=== PATIENT | male | born 1940 | race Caucasian/White ===

== ENCOUNTER 2019-03-10 10:05 | Inpatient (IN) | payer MEDICARE ==
[~2019-03-10] VITALS: Ht 167.6 cm; Wt 111.0 kg
[2019-04-22] VITALS (12 sets, daily range): BP systolic 111–156; BP diastolic 56–93; PULSE 50–84; TEMP 98–98.5
[2019-04-22] MEDS ORDERED: RYTHMOL300 MG PO (06:25)
[2019-04-22] MEDS ORDERED: CARTIA XT120 MG PO (06:25)
[2019-04-22] MEDS ORDERED: ASPIRIN E.C. 8181 MG PO (06:26)
[2019-04-22] MEDS ORDERED: OMEGA-3 1000 MG1 CAP PO (06:26)
[2019-04-22] MEDS ORDERED: ALEVE 220MG220 MG PO (06:27)
--- NOTE | 2019-04-22 07:30 | NUR ---
arrived per at 0540, assisted into gown and into bed, prepped for surgery without incident, explantion given for going to and returning from surgery to patient and his daughter, verbalizes understanding
--- NOTE | 2019-04-22 12:00 | NUR ---
returned to room per bed from PACU, awake and alert but very sleepy, IV infusing and placed on pump at 125ml/hr, O2 on at 3L/NC and O2 sat 98%, bulky dressing to left knee CD&I, SCDs on bilaterally, CARRILLO hose on right leg, finn cath pateint draining clear yellow urine, has sensation at the top of his thighs and unable to move lower extremities, full assessment completed, see interventions for further info
--- NOTE | 2019-04-22 12:30 | NUR ---
sleeping between checks, arouses easily
--- NOTE | 2019-04-22 13:15 | NUR ---
is awake now and visiting with daughter with TV on, has minimal sensation to mid thigh area and remains unable to move lower extremities
--- NOTE | 2019-04-22 13:45 | NUR ---
has some sensation to knee on the right and has gross motor movement, unable to mvoe left leg
--- NOTE | 2019-04-22 14:00 | NUR ---
taking sips of water and tolerates well, visiting with daughter
--- NOTE | 2019-04-22 14:45 | NUR ---
has sensation and movement to bilateral feet, is ready for something to eat and assisted him with ordering food,
--- NOTE | 2019-04-22 14:46 | NUR ---
ARCHANA met with the patient and patient's daughter, Sylvia Bahena (ph#[phone]), to discuss discharge plan. The patient lives in [place] with his daughter, Sylvia Ward, and son-in-law. He reports independence with ADLs and does not have any DME. The patient's PCP is Dr. Emerita Iraheta and he receives his medications at [facility]. He reports no difficulties obtaining his meds. The patient does not have advanced directives, but he was interested in obtaining a form for DPOA-HC. ARCHANA provided. The patient plans to return home with his daughter and receive outpatient PT at [facility] upon discharge. SW to continue to monitor for PT's possible recs for equipment needs.
--- NOTE | 2019-04-22 15:45 | NUR ---
had regular meal and tolerated well, denies needs
--- NOTE | 2019-04-22 17:09 | NUR ---
c/o pain 01/27 and medicated with roxicodone 5mg po
--- NOTE | 2019-04-22 18:00 | NUR ---
appears to be sleeping, in bed with eyes closed, resp quiet and easy
--- NOTE | 2019-04-22 19:03 | NUR ---
bedside shift report given to Boris Jolly
--- NOTE | 2019-04-22 20:30 | NUR ---
Pt. laying in bed at this time. Pt. is A&OX3, assessment complete. IV to rt. forearm patent, IV fluids infusing per orders. Pt. reports pain at a 6 on pain scale. Meds given. Dressing to lt. knee cdi. Pt. denies further needs at this time.
[2019-04-23 05:13] VITALS: BP 141/76; PULSE 79; TEMP 98.7
--- NOTE | 2019-04-23 06:35 | NUR ---
Patient had uneventful night. Resting in bed. Reported moderate pain, given PRN norco. Denied any further needs at this time. Call light within reach.
[2019-04-23 07:04] LABS: HEMATOCRIT 44.5 % (42.0-52.0); HEMOGLOBIN 14.3 g/dl (13.5-18.0)
--- NOTE | 2019-04-23 07:05 | NUR ---
Report given to BORIS Oconnor
[2019-04-23 07:55] VITALS: BP 138/81; PULSE 81; TEMP 98.6
--- NOTE | 2019-04-23 08:11 | NUR ---
PATIENT ASSESSMENT COMPLETED. PATIENT VSS. PATIENT IS ALERT AND ORIENTED. PATIENT HAS DX OF LEFT TOTAL KNEE. PATIENT HAS IV IN RIGHT FOREARM. PATIENT WAS INT THIS MORNING BY NURSING STAFF. PATIENT DRESSING IS DRY AND INTACT, PATIENT DRESSING WAS CHANGED TO AQUACELL WITH CANDIDA WRAP. PATIENT DOES HAVE VYAS IN PLACE WITH CLEAR/YELLOW URINE. THIS MORNING BY NURSING STAFF. PATIENT RECEIVED PAIN MEDS AROUND 0600. PATIENT RATED PAIN AT ABOUT A 6. PATIENT LUNG SOUNDS NORMAL. HEART SOUNDS TACHY WITH AN ABNORMAL RHYTHM. PATIENT DENIES CHEST PAIN OR SOB. PATIENT IN PLEASANT MOOD. CALL LIGHT WITHIN REACH, WILL CONTINUE TO MONITOR.
[2019-04-23 11:02] VITALS: BP 122/68; PULSE 83; TEMP 98.1
--- NOTE | 2019-04-23 12:10 | NUR ---
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 No needs right now.
[2019-04-23 16:02] VITALS: BP 150/76; PULSE 88; TEMP 98.4
--- NOTE | 2019-04-23 16:45 | NUR ---
SW met with patient to discuss DME choice form for a walker. After speaking with patient's daughter, Sylvia Ward, patient and daughter reviewed options and chose [facility]. SW faxed referral and will fax order when it is signed tomorrow.
--- NOTE | 2019-04-23 20:00 | NUR ---
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 Assessment complete. Denies pain. Alert and oriented to self-very confused-reoriented and remembers where he is and why. Has removed clothing several times-stating he needed to go home/ride horses. Aquacell to left knee C/D/I. SCDs and TEDs on bilat. Cryocuff with fresh ice. Voiding without difficulty and tolerating PO diet. INT to right forearm flushes without difficulty. No redness/swelling noted. Call light in reach. Bed in low position/wheels locked. Bed alarm on due to recent confusion. Will monitor.
[2019-04-23 21:02] VITALS: BP 147/88; PULSE 115; TEMP 98.5
--- NOTE | 2019-04-23 22:00 | NUR ---
Has been very confused-trying to get out of bed to "ride horses" or to "go home to eat with family." Pulled out INT to right forearm. Has had legs out of bed trying to climb over bed rail. Moved to room 345 closer to nurses station as bed alarm will be set off and already hanging off side of bed. Re-oriented several times. Denies pain. Will monitor.
[2019-04-23 23:53] VITALS: BP 123/87; PULSE 91; TEMP 98.9
--- NOTE | 2019-04-24 01:00 | NUR ---
Dressing to left knee with large amount of bright red blood. Has been very confused-wont keep knee in proper alignment-trying to get out of bed to ride horses. Removed cryocuff as well as SCDs. Removed rod and ABD re-enforement placed on day shift-aquacell totally saturated with blood leaking over sides. Notified provider manager zone about dressing and confusion- new orders to replace with bulky white dressing/rod. Chan intact-edges well approximated. Active bleeding to distal part of incision only-between two chan. Placed 4x4s over incision, ABDsX2, fluffy white cast dressingx2 with rod bandage x2. Fresh ice/water added to cryocuff and applied. Supported on pillow below bed in knee. Instructed on proper alignment as well as the cryocuff for swelling. Verbalizes understanding. Will monitor and re-orient as needed.
[2019-04-24 03:44] VITALS: BP 142/83; PULSE 97; TEMP 98.3
--- NOTE | 2019-04-24 04:00 | NUR ---
Has not rested much this shift. Has remained [id number] with plan of care discussed. No drainage noted to new dressing. Cryocuff on with fresh ice/water. Denies pain and nausea. Will continue to monitor.
[2019-04-24 07:15] LABS: HEMATOCRIT 41.3 % (42.0-52.0); HEMOGLOBIN 13.5 g/dl (13.5-18.0)
[2019-04-24 07:53] VITALS: BP 127/79; PULSE 92; TEMP 98.2
[2019-04-24 08:40] LABS: BASO % 0.4 % (0.0-2.0); EOS # 0.1 (0.0-0.7); EOS % 0.8 % (0-4.0); GRAN % 73.2 % (42.2-75.2); HEMATOCRIT 41.6 % (42.0-52.0); HEMOGLOBIN 13.6 g/dl (13.5-18.0); LYMPH # 1.1 (1.2-3.4); LYMPH % 11.5 % (20.0-51.0); MEAN CELL VOLUME 96 fl (80.0-100.0); MEAN CORPUSCULAR HEMOGLOBIN 31 pg (27.0-31.0); MEAN CORPUSCULAR HGB CONC 33 g/dl (33.0-37.0); MEAN PLATELET VOLUME 11.2 fl (7.4-10.4); MONO # 1.3 (0.1-0.6); MONO % 13.6 % (1.7-9.3); PLATELET COUNT 143 K/mm3 (130-400); RED BLOOD COUNT 4.34 M/mm3 (4.20-5.60); REDCELL DISTRIBUTION WIDTH-CV 12.5 % (11.5-14.5)
[2019-04-24 08:42] LABS: POTASSIUM 4.3 mmol/L (3.4-5.0)
[2019-04-24 08:52] LABS: ALBUMIN 3.4 gm/dL (3.5-5.0); BILIRUBIN,TOTAL 1.1 mg/dL (0.0-1.0); CALCIUM 8.9 mg/dL (8.4-10.2); CREATININE, serum 0.93 (0.66-1.25); TOTAL PROTEIN 6.2 gm/dL (6.4-8.2)
--- NOTE | 2019-04-24 08:58 | NUR ---
PATIENT ASSESSMENT COMPELTED. PATIENT IS ALERT AND SOMEWHAT ORIENTED. PATIENT HAS SOME MILD CONFUSION INT. PATIENT VSS AND HEART AND LUNG SOUNDS NORMAL. PATIENT HAS DX OF LTK WITH AQUACELL DRESSING. 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 PATIENT ATE 100% OF BREAKFAST. PATIENT HGB NORMAL AND SODIUM OF 136. PATIENT GIVEN MORNING MEDICATION. PATIENT CALL LIGHT WITHIN REACH, WILL CONTINUE TO MONITOR.
[2019-04-24 11:32] VITALS: BP 119/66; PULSE 78; TEMP 97.4
--- NOTE | 2019-04-24 11:46 | NUR ---
ARCHANA attended clinical rounds. The patient had some confusion last night and was moved to room 345. PT/OT have since worked with the patient and are now recommending home with family and outpatient therapy vs post acute rehab. ARCHANA then followed up with the patient. The patient reports that he does not want to go to any SNF or swing bed. He states that he still wants to return home with his daughter and son-in-law and that he will have family assistance. ARCHANA then contacted the patient's daughter, Sylvia Ward, to update. Sylvia Ward reports that she knows the patient will not want to go anywhere. She states that she would prefer home health to start off with and then have the patient transition to outpatient PT. ARCHANA reviewed Medicare.gov's list of home health agencies that serve [place]. There are three agencies on the list. The patient's daughter chose [facility]. ARCHANA contacted [facility] and they report that they do not do home health anymore. ARCHANA contacted [facility] in [place] to inquire if they serve [place] for PT/OT. [facility] reports that they do not. ARCHANA contacted Shannon at [facility]. Shannon reports that she is unsure if their therapists go out to [place], but that she will find out and update ARCHANA. ARCHANA contacted and updated the patient's daughter. The patient's daughter plans to come up to the hospital and visit with the patient about the options after she gets off work. ARCHANA contacted and faxed the patient's walker script to Lakesha at [facility]. Lakesha reports that they will either deliver the walker later today or tomorrow. ARCHANA to continue to follow.
[2019-04-24 15:32] VITALS: BP 131/81; PULSE 97; TEMP 98.4
--- NOTE | 2019-04-24 15:38 | NUR ---
Shannon, at [facility], reports that they would be able to provide PT/halfway for the patient. ARCHANA attempted to contact the patient's daughter to inform and left a voicemail. The patient's daughter contacted ARCHANA back and informed ARCHANA that she reached out to Eliza Champion (ph#[phone]) at [facility] in [place] and Eliza reports that they can provide therapy in the home for the patient for a few weeks. ARCHANA contacted Eliza Champion and she confirms that they can accept the patient and requested that ARCHANA fax the patient's orders to [phone] and [facility]. ARCHANA faxed a referral to Eliza at [facility] and will continue to follow.
[2019-04-24 17:49] LABS: COLLECTION METHOD CLEAN CATCH
[2019-04-24 18:14] LABS: PH 6 (5-8); SQUAMOUS EPITHELIAL 0-2 /hpf; URINE APPEARANCE Clear; URINE BACTERIA None Seen /hpf; URINE BILIRUBIN Negative (NEGATIVE); URINE BLOOD Negative (NEGATIVE); URINE COLOR Yellow; URINE GLUCOSE Negative (NEGATIVE); URINE KETONE Negative (NEGATIVE); URINE LEUKOCYTE ESTERASE Negative (NEGATIVE); URINE NITRATE Negative (NEGATIVE); URINE PROTEIN(semi-quant) Negative (NEGATIVE); URINE RBC 0-2 /hpf
--- NOTE | 2019-04-24 19:30 | NUR ---
Report received. 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 Assessment complete. VS stable. A&O x3- denies pain/nausea/shortness of breath. Sitting up in recliner watching football game. Daughter is at bedside visiting with questions from the night before and whether or not her father will be able to go home tomorrow as planned. Seems slightly agitated/anxious. Reassured her that we would be working with him this shift to increase activity. 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 Patient also contributed to conversation stating several times he doesnt remember anything from last NOC. Daughter verbalized understanding of what the situation was-no longer agitated but still concerned about whether or not he will be able to go home. Discussed results of tests ran post incident explaining that this happens with some patients after anesthesia. Compression dressing remains C/D/I-bulky white with rod bandage. Cryocuff on-fresh ice/water replaced. Edema to LLE +2. SCDs bilat. Discussed getting up to ambulate this shift as well as getting up to bathroom with assistance. Verbalizes understanding. Daughter states she will be going home this evening but will be back tomorrow afternoon unless she is needed earlier in which day shift may call. No other questions or concerns at this time. Instructed to call for questions or concerns. Verbalizes understanding. Call light in reach/chair alarm on. Will monitor.
[2019-04-24 19:35] VITALS: BP 127/72; PULSE 92; PULSE 98; TEMP 99.8
--- NOTE | 2019-04-24 20:15 | NUR ---
Attempt made to ambulate/use bathroom. Assistx2 with gait belt/walker. Very unsteady gait-Did ambulate to bathroom-voided without difficulty. Attempted to ambulate in hallway-made it to door and back to bed. Positioned in bed with teaching done on proper alignment. Cryocuff reapplied. Denies need for pain intervention stating the ice helps enough. Instructed to call for increased pain or assistance to bathroom. Verbalizes understanding. Remains A&Ox3. Call light in reach/bed in low position/wheels locked/alarm on. Will monitor.
[2019-04-24 23:59] VITALS: BP 101/53; PULSE 93; TEMP 98.4
--- NOTE | 2019-04-25 | NUR ---
Has slept the last few hours. Woke up slightly confused-removing cryocuff and attempting to remove dressing. Re-oriented immediately after mentioning his "surgery." States "I slept so hard I didnt know where I was and just wanted to go to the bathroom." Assist x2 up out of bed with gait belt/walker to bathroom. Not as unsteady-following direction/guidance. Voided without difficulty. Ambulated back to bed-cryocuff re-applied with fresh ice/water. Denies pain. Edema to LLE +3. Teaching done about importance of cryocuff and proper alignment. Verbalizes understanding. Call light in reach/bed in low position/wheels locked/alarm on. Will continue to monitor.
[2019-04-25 04:00] VITALS: BP 121/44; PULSE 89; TEMP 98.3
--- NOTE | 2019-04-25 06:55 | NUR ---
awake resting in bed, bedside shift report received from BORIS Adair, patient is alert and after a few minutes of thinking was oriented to place, asssited up to bathroom and ambulates fairly well with a steady gait, voids qs, then out and assisted into recliner, full assessment completed, see interventions for further info
[2019-04-25 07:32] VITALS: BP 114/68; PULSE 93; TEMP 98.4
--- NOTE | 2019-04-25 08:20 | NUR ---
remains up in chair, had breakfast and tolerated well, is oriented times 4 at this time
--- NOTE | 2019-04-25 09:05 | NUR ---
ambulated out to peck with physical therapy for group exercises
--- NOTE | 2019-04-25 10:30 | NUR ---
ambulated back to room after therapy and resting in chair, remains oriented, denies needs
[2019-04-25] MEDS ORDERED: ASPI325T6 PO (10:34)
[2019-04-25] MEDS ORDERED: NORCO 325 MG-7.1 TAB PO (10:35)
--- NOTE | 2019-04-25 11:02 | NUR ---
[facility] delivered the patient's walker to his room.
[2019-04-25 11:46] VITALS: BP 133/72; PULSE 91; TEMP 97.8
--- NOTE | 2019-04-25 11:54 | NUR ---
The patient is to discharge back home with his daughter and son-in-law today, 04/25, with home health services for PT/OT through [facility]. ARCHANA faxed the patient's orders to [facility] in [place]. ARCHANA presented and explained the IM form to the patient. The patient verbalized understanding, signed, and he was provided a copy. No additional needs at this time.
--- NOTE | 2019-04-25 13:00 | NUR ---
resting in chair, physical therapy in to work with patient
--- NOTE | 2019-04-25 13:40 | NUR ---
back to bed after therapy and encouraged to rest before discharge later today
--- NOTE | 2019-04-25 14:24 | NUR ---
in bed watching TV, denies needs
--- NOTE | 2019-04-25 15:50 | NUR ---
appears to be sleeping, in bed with eyes closed, resp quiet and easy
[2019-04-25 16:06] VITALS: BP 132/62; PULSE 87; TEMP 98.3
[2019-04-25 16:08] VITALS: BP 133/43; PULSE 81; TEMP 97.6
--- NOTE | 2019-04-25 16:20 | NUR ---
assisted up to bathroom and voided qs, then to recliner, bulky dressing to left knee removed, no ozzing or drainage noted, covered with aquacel dressing, then resting in chair
--- NOTE | 2019-04-25 17:30 | NUR ---
daughter here for discharge, discharge instructions given to daughter and patient, verbalizes understanding
--- NOTE | 2019-04-25 17:50 | NUR ---
up to bathroom and voided, into WC and discharged
== END 2019-04-25 17:55 | disposition home or self-care (01) | DRG 470 ==
LOC: JCC 04-22 05:43 → SURG 04-23 23:45
PROVIDERS: Internal Medicine; Physician Assistant; ADMIT Orthopaedic Surgery
PROC: 0SRD0J9 Replacement of Left Knee Joint with Synthetic Substitute, Cemented, Open Approach (ICD-10-PCS; principal; 2019-04-22 09:00)
DX: M17.12 Unilateral primary osteoarthritis, left knee (principal)
CPT/HCPCS: 99223; 99231-AI; A4314; A9284; C1776; J0690; J2250; J2704; J3010; J7120

== ENCOUNTER 2020-06-03 15:54 | Observation (INO) | payer MEDICARE ==
[2020-06-03] VITALS (62 sets, daily range): BP systolic 137; BP diastolic 100; PULSE 91; TEMP 98.9; O2SAT 94–100
[~2020-06-03] VITALS: Wt 104.2 kg
[~2020-06-03 15:54] MED LIST: ALEVE 220MG220 MG PO; AMOXICILLIN/CLA1 TA1 PO; ASPI325T6 PO; ASPIRIN 81M81 MG/TA2 PO; ASPIRIN E.C. 8181 MG PO; CARAFATE S1 GM/10 ML PO; CARTIA XT120 MG PO; LANOXIN 0.120.125 MG PO; NORCO 325 MG-7.1 TAB PO; OMEGA-3 1000 MG1 CAP PO; OMEGA-31 SGL PO; PROTONIX 40MG T40 MG PO; RYTHMOL300 MG PO; TOPROL XL 25MG25 MG PO; TYLENOL 500MG500 MG PO; ULTRAM 50MG TAB50 MG PO
[2020-06-03 16:45] LABS: BASO # 0.1 (0.0-0.2); BASO % 0.9 % (0.0-2.0); EOS # 0.2 (0.0-0.7); EOS % 3.4 % (0-4.0); GRAN # 4.8 (1.4-6.5); GRAN % 70.7 % (42.2-75.2); HEMOGLOBIN 10.9 g/dl (13.5-18.0); LYMPH # 1.1 (1.2-3.4); LYMPH % 15.5 % (20.0-51.0); MEAN CELL VOLUME 95 fl (80.0-100.0); MEAN CORPUSCULAR HEMOGLOBIN 30 pg (27.0-31.0); MEAN CORPUSCULAR HGB CONC 31 g/dl (33.0-37.0); MEAN PLATELET VOLUME 10.2 fl (7.4-10.4); MONO # 0.6 (0.1-0.6); MONO % 8.5 % (1.7-9.3); PLATELET COUNT 300 K/mm3 (130-400); REDCELL DISTRIBUTION WIDTH-CV 14.1 % (11.5-14.5)
[2020-06-03 16:54] LABS: HEMATOCRIT 35.2 % (42.0-52.0)
[2020-06-03 16:57] LABS: ALANINE AMINOTRANSFERASE 23 U/L (4-49); ALBUMIN 3.5 gm/dL (3.5-5.0); ALKALINE PHOSPHATASE 82 U/L (50-136); ANION GAP 7 mmol/L (7-16); AST,SGOT 30 U/L (15-37); BILIRUBIN,TOTAL 0.4 mg/dL (0.0-1.0); BLOOD UREA NITROGEN 37 mg/dL (9-20); CALCIUM 9.3 mg/dL (8.4-10.2); CARBON DIOXIDE 27 mmol/L (22-30); CHLORIDE 105 mmol/L (98-107); CREATININE, serum 1.93 (0.66-1.25); GLUCOSE 125 mg/dL (74-106); POTASSIUM 3.9 mmol/L (3.4-5.0); SODIUM 138 mmol/L (137-145); TOTAL PROTEIN 6.9 gm/dL (6.4-8.2)
[2020-06-03 17:11] LABS: TROPONIN-I < 0.012 ng/mL (0.000-0.035)
[2020-06-03 21:39] LABS: MAGNESIUM 1.7 mg/dL (1.6-2.3)
[2020-06-03 22:10] LABS: TSH w REFLEX 6.4 uIU/mL (0.465-4.680)
--- NOTE | 2020-06-03 22:45 | NUR ---
Patient heard yelling outloud "hey goddammit!" muliple times. Nurse entered room to check on patient. Patient stated "I need to take a crap". Assisted with bedpan. Patient very irritable with all cares and was yelling and cursing at staff will assisting with turning. Call light left within reach. Will continue to monitor.
--- NOTE | 2020-06-03 22:53 | NUR ---
Called [facility] to request a fax of recent discharge paperwork from [facility]. Awaiting paperwork at this time.
--- NOTE | 2020-06-03 23:18 | NUR ---
Patient stated he was hungry and thirsty. Assisted with giving water and chocolate pudding. Able to swallow without difficulty.
[2020-06-03] MEDS ORDERED: TYLENOL 500MG500 MG PO (23:24)
[2020-06-03] MEDS ORDERED: ARICEPT 5MG PO (23:25)
[2020-06-03] MEDS ORDERED: ELIQUIS 5MG PO (23:26)
[2020-06-03] MEDS ORDERED: MIRTAZAPINE7.5 MG PO (23:27)
[2020-06-03] MEDS ORDERED: FLOMAX 0.40.4 MG/CAP PO (23:28)
[2020-06-03] MEDS ORDERED: ZOFRAN 4MG T4 MG/TAB PO (23:29)
[2020-06-04] VITALS (578 sets, daily range): BP systolic 106–146; BP diastolic 64–89; PULSE 86–94; TEMP 97.7–979; O2SAT 36–100
--- NOTE | 2020-06-04 01:01 | NUR ---
Patient has been unable to void since coming to unit. Has asked multiple times to void but has been unsucessful. BLadder scan performed greatest value was 145ml. Mulitple scans were performed to verify this number. Hospitalist notified. No further orders at this time. .
[2020-06-04 04:51] LABS: BASO # 0.1 (0.0-0.2); BASO % 0.7 % (0.0-2.0); EOS # 0.3 (0.0-0.7); EOS % 4.4 % (0-4.0); GRAN # 4.8 (1.4-6.5); GRAN % 68.4 % (42.2-75.2); LYMPH # 1.2 (1.2-3.4); LYMPH % 17.1 % (20.0-51.0); MEAN CELL VOLUME 94 fl (80.0-100.0); MEAN CORPUSCULAR HGB CONC 31 g/dl (33.0-37.0); MONO # 0.6 (0.1-0.6); MONO % 8.7 % (1.7-9.3); PLATELET COUNT 259 K/mm3 (130-400); RED BLOOD COUNT 3.35 M/mm3 (4.20-5.60); REDCELL DISTRIBUTION WIDTH-CV 14.1 % (11.5-14.5)
[2020-06-04 04:55] LABS: HEMOGLOBIN 9.8 g/dl (13.5-18.0); MEAN CORPUSCULAR HEMOGLOBIN 29 pg (27.0-31.0)
[2020-06-04 04:56] LABS: HEMATOCRIT 31.6 % (42.0-52.0)
[2020-06-04 05:04] LABS: CALCIUM 8.9 mg/dL (8.4-10.2); CREATININE, serum 1.55 (0.66-1.25); POTASSIUM 3.6 mmol/L (3.4-5.0)
--- NOTE | 2020-06-04 10:45 | NUR ---
This is a readmission for patient. Patient was discharged on 05/13/[facility] [place] [place]. From [facility] patient transferred to [facility] for skilled care and then admitted to the hospital. hired worker contacted Sylvia Ward [phone] and confirmed that patient will return to [facility] upon discharge. Worker contacted [facility] and confirmed that they will accept patient upon discharge. Worker advised that discharge could be as early as tomorrow (Sunday). Worker faxed clinical updates to [facility].
--- NOTE | 2020-06-04 14:24 | NUR ---
Transfered to room 344 via bed with andrea. Naty RN aware of arrival. Call light at side and bed alarm on at this time
--- NOTE | 2020-06-04 17:52 | NUR ---
Patient currently sleeping. Patient has been intermittently very confused since arriving to floor, and at times angry and combative. Patient was incontinent of bowel and bladder. VS have remained WNL and loop recorder insertion site remains CDI. Bed alarm on, patient observable from desk.
--- NOTE | 2020-06-04 18:37 | NUR ---
Med rec reviewed, patient is unable to answer questions about medications. Will pass on to next shift to clarify medication dates and times with NOK.
--- NOTE | 2020-06-04 20:00 | NUR ---
Report received, assumed care for last marker. Assessment complete. VS stable. A&O to self-very confused and combative on occasion. Denies pain/nausea/shortness of breath. Tele reading tachycardia 100-110. Dressing to middle chest with old drainage-gauze/tape. Tegaderm to right upper chest CDI. IV to right upper arm flushes without difficulty. Plan of care discussed for this shift to include HS medication/calling for needs. Unable to understand. Call light in reach/bed alarm on will monitor.
--- NOTE | 2020-06-04 23:45 | NUR ---
Incontinent of bowel/bladder at this time. Alba care provided. Very confused and combative. Continues to remove all clothes and scream out profanity. When asked what is needed states "nothing-get out." Tele monitor adjusted due to continuous removal. Will continue to monitor.
[2020-06-05 03:19] VITALS: BP 119/62; PULSE 97; TEMP 98.1
--- NOTE | 2020-06-05 04:41 | NUR ---
Has continued to remove tele all shift. Re-applied 10 times so far this shift. Has been incontinent of both bowel and bladder x2. Remained confused and combative. Call light in reach/bed alarm on. Will monitor.
[2020-06-05 05:57] LABS: BASO # 0.1 (0.0-0.2); BASO % 0.8 % (0.0-2.0); EOS # 0.3 (0.0-0.7); EOS % 4.2 % (0-4.0); GRAN # 4.4 (1.4-6.5); GRAN % 67.7 % (42.2-75.2); HEMOGLOBIN 10.3 g/dl (13.5-18.0); LYMPH # 1.1 (1.2-3.4); LYMPH % 16.7 % (20.0-51.0); MEAN CELL VOLUME 93 fl (80.0-100.0); MEAN CORPUSCULAR HEMOGLOBIN 30 pg (27.0-31.0); MEAN CORPUSCULAR HGB CONC 32 g/dl (33.0-37.0); MEAN PLATELET VOLUME 10.3 fl (7.4-10.4); MONO # 0.6 (0.1-0.6); PLATELET COUNT 279 K/mm3 (130-400); RED BLOOD COUNT 3.46 M/mm3 (4.20-5.60); REDCELL DISTRIBUTION WIDTH-CV 14.1 % (11.5-14.5)
[2020-06-05 05:59] LABS: HEMATOCRIT 32.3 % (42.0-52.0)
[2020-06-05 06:06] LABS: CALCIUM 9.2 mg/dL (8.4-10.2); CREATININE, serum 1.51 (0.66-1.25); POTASSIUM 3.8 mmol/L (3.4-5.0)
[2020-06-05 07:33] VITALS: BP 123/77; PULSE 98; TEMP 98.5
--- NOTE | 2020-06-05 08:21 | NUR ---
Lying in bed with eyes open. Denies pain. Patient is alert but is disoriented to location and date. Incision to right chest without dressing, edges approximated, no redness/swelling/discharge. Patient says that he is not hungry at this time but to leave his breakfast tray as he may want it later. Right lower extremity with areas of redness, scabs. 2+ Bilat lower ext edema noted. Patient denies additional needs at this time.
[2020-06-05] MEDS ORDERED: TOPROL XL 25MG25 MG PO (10:05)
[2020-06-05 10:55] VITALS: BP 123/77; PULSE 98; TEMP 98.5
[2020-06-05 11:41] VITALS: BP 113/68; PULSE 85; TEMP 97.8
--- NOTE | 2020-06-05 12:11 | NUR ---
Sitting up in bed watching TV and eating lunch. Occasionally bangs on table with silverware. PT earlier attempted to get patient up to [facility] and he would not follow instructions and was hitting arms around at the staff. Denies pain at this time. Remains disoriented to location and date.
--- NOTE | 2020-06-05 13:25 | NUR ---
ARCHANA informed that patient would be discharging on this day 06/05/20. Orders faxed to [facility], and staff called to discuss transport. Transport pickup time 2:30pm. SW called daughter to inform her of updated information. Nothing further.
--- NOTE | 2020-06-05 15:25 | NUR ---
Roel here with wheel chair to pick patient up. Patient transfers with assist of two, follows instructions without difficulty. Patient assisted out to vehicle via wheel chair by KRYSTYNA Bolden, with all belongings. Call Roel and explain that I was calling to give report, you could hear buttons being pushed like call was attempting to be transferred, line was disconnected. Attempt to call back two times and no one answers the phone.
--- NOTE | 2020-06-05 15:32 | NUR ---
Report called to Maricarmen Sevilla.
== END 2020-06-05 15:33 ==
LOC: COL.ER 15:54 → ICU 18:36 → SURG 06-04 14:05
PROVIDERS: Family Medicine; Nurse Practitioner Family; ADMIT Student in an Organized Health Care Education/Training Program
DX: R55 Syncope and collapse (principal); R00.1 Bradycardia, unspecified; I48.20 Chronic atrial fibrillation, unspecified; I12.9 Hypertensive chronic kidney disease with stage 1 through stage 4 chronic kidney disease, or unspecified chronic kidney disease; N18.9 Chronic kidney disease, unspecified; I10 Essential (primary) hypertension; Z20.828 Contact with and (suspected) exposure to other viral communicable diseases; F03.90 Unspecified dementia, unspecified severity, without behavioral disturbance, psychotic disturbance, mood disturbance, and anxiety; D64.9 Anemia, unspecified; K21.9 Gastro-esophageal reflux disease without esophagitis; F32.9 Major depressive disorder, single episode, unspecified; I35.1 Nonrheumatic aortic (valve) insufficiency; L03.116 Cellulitis of left lower limb; R53.1 Weakness; R53.81 Other malaise; R32 Unspecified urinary incontinence; M19.90 Unspecified osteoarthritis, unspecified site; Z90.79 Acquired absence of other genital organ(s); Z96.651 Presence of right artificial knee joint; Z79.899 Other long term (current) drug therapy; Z79.01 Long term (current) use of anticoagulants; Z79.82 Long term (current) use of aspirin; Z66 Do not resuscitate
CPT/HCPCS: 99223-AI; 99233-AI; G0378; J7120

== ENCOUNTER → 2020-06-08 | Outpatient (CLI) | payer MEDICARE ==
[~2020-06-08] MED LIST changes: +ARICEPT 5MG PO; +ELIQUIS 5MG PO; +FLOMAX 0.40.4 MG/CAP PO; +MIRTAZAPINE7.5 MG PO; +ZOFRAN 4MG T4 MG/TAB PO
[2020-06-08 15:07] LABS: ALBUMIN 3.2 gm/dL (3.5-5.0); BILIRUBIN,TOTAL 0.5 mg/dL (0.0-1.0); CALCIUM 9.1 mg/dL (8.4-10.2); CREATININE, serum 1.76 (0.66-1.25); TOTAL PROTEIN 6.4 gm/dL (6.4-8.2)
[2020-06-08 15:29] LABS: BASO # 0.1 (0.0-0.2); BASO % 0.9 % (0.0-2.0); EOS # 0.4 (0.0-0.7); EOS % 5.4 % (0-4.0); GRAN # 4.6 (1.4-6.5); GRAN % 68.3 % (42.2-75.2); HEMOGLOBIN 10.7 g/dl (13.5-18.0); LYMPH # 0.9 (1.2-3.4); LYMPH % 14.1 % (20.0-51.0); MEAN CELL VOLUME 97 fl (80.0-100.0); MEAN CORPUSCULAR HEMOGLOBIN 30 pg (27.0-31.0); MEAN CORPUSCULAR HGB CONC 31 g/dl (33.0-37.0); MEAN PLATELET VOLUME 10.7 fl (7.4-10.4); MONO # 0.7 (0.1-0.6); MONO % 10.8 % (1.7-9.3); PLATELET COUNT 336 K/mm3 (130-400); RED BLOOD COUNT 3.59 M/mm3 (4.20-5.60); REDCELL DISTRIBUTION WIDTH-CV 14.2 % (11.5-14.5)
[2020-06-08 15:34] LABS: HEMATOCRIT 34.7 % (42.0-52.0)
== END ==
LOC: ZCOL.LAB 13:22
PROVIDERS: Emergency Medicine
DX: N18.30 Chronic kidney disease, stage 3 unspecified (principal)

== ENCOUNTER 2023-04-26 16:37 | Inpatient (IN) | payer MEDICARE ==
[~2023-04-26] VITALS: Ht 170.2 cm; Wt 87.3 kg
[2023-04-26] MEDS ORDERED: MAGNESIUM OXID500 MG PO (17:37)
[2023-04-26] MEDS ORDERED: CRESTOR 10MG10 MG PO (17:38)
[2023-04-26] MEDS ORDERED: ZYLOPRIM 300MG300 MG PO (17:38)
[2023-04-26] MEDS ORDERED: NAMENDA5 MG PO (17:43)
[2023-04-26] MEDS ORDERED: LASIX 40MG TABL40 MG PO (17:43)
[2023-04-26] MEDS ORDERED: PROTONIX 40MG T40 MG PO (17:44)
[2023-04-26] MEDS ORDERED: ARICEPT10 MG PO (17:46)
[2023-04-26 17:53] LABS: MEAN CELL VOLUME 93 fl (80.0-100.0); MEAN CORPUSCULAR HGB CONC 33 g/dl (33.0-37.0); MEAN PLATELET VOLUME 10.8 fl (7.4-10.4); PLATELET COUNT 134 K/mm3 (130-400); RED BLOOD COUNT 2.46 M/mm3 (4.20-5.60); REDCELL DISTRIBUTION WIDTH-CV 14.8 % (11.5-14.5)
[2023-04-26 17:55] LABS: HEMATOCRIT 22.9 % (42.0-52.0); HEMOGLOBIN 7.6 g/dl (13.5-18.0); MEAN CORPUSCULAR HEMOGLOBIN 31 pg (27-31)
[2023-04-26 18:02] LABS: INR 1.3 (0.8-3.0); PROTHROMBIN TIME 13.9 SECONDS (9.7-12.8)
[2023-04-26 18:11] LABS: ALBUMIN 2.4 gm/dL (3.4-4.8); BILIRUBIN,TOTAL 0.7 mg/dL (0.2-1.2); CALCIUM 7.8 mg/dL (8.4-10.2); CREATININE, serum 1.32 mg/dL (0.72-1.25); POTASSIUM 3.5 mmol/L (3.5-4.5); TOTAL PROTEIN 4.6 gm/dL (6.2-8.1)
[2023-04-26 18:42] LABS: BAND 2 % (0-10); LYMPHOCYTE 2 % (20.0-51.0); NEUTROPHILS 91 % (42.0-75.2); NUCLEATED RED BLOOD CELL 1 (0-6)
--- NOTE | 2023-04-26 18:43 | NUR ---
Patient arrived to room 303 via EMS. The patient is alert, oriented to place only. He denies any pain, but visably has pain with movement to left hip. Ice placed to site. LLE has redness and warm to touch with sensitivity. Bilateral dorsal pedis pulse confirmed by doppler. CARRILLO hose placed to RLE. Erwin is in place and draining. IV to R hand. Patient is on RA, has a wet cough. He denies any SOB. Fall precautions are in place. Patient eating and drinking without difficulty. NPO at midnight. In isolation precautions.
[2023-04-26 18:49] LABS: ANISOCYTOSIS 1+; PLATELET ESTIMATE NORMAL (NORMAL)
[2023-04-26 19:25] LABS: COLLECTION METHOD CATHETER
[2023-04-26 19:30] LABS: SQUAMOUS EPITHELIAL None Seen /hpf (0-10); URINE BACTERIA Rare /hpf (NONE SEEN); URINE RBC 0-2 /hpf (0-2)
[2023-04-26 19:34] LABS: URINE APPEARANCE Clear (CLEAR/HAZY); URINE COLOR Colorless (YELLOW)
[2023-04-26 19:35] LABS: URINE BLOOD 2+ (NEGATIVE); URINE GLUCOSE Negative (NEGATIVE); URINE KETONE Negative (NEGATIVE); URINE NITRATE Negative (NEGATIVE); URINE PROTEIN(semi-quant) Negative (NEGATIVE); URINE UROBILINOGEN 0.2 E.U/dL (0.2-1.0)
[2023-04-26 19:58] VITALS: BP 125/65; PULSE 103; TEMP 98.3
[2023-04-26 20:15] VITALS: BP_SYST 105
[2023-04-26 21:30] VITALS: BP_SYST 105
[2023-04-26 23:49] VITALS: BP 105/74; PULSE 94; TEMP 98.3
[2023-04-27] VITALS (19 sets, daily range): BP systolic 93–114; BP diastolic 59–75; PULSE 79–111; TEMP 97.3–98.6
--- NOTE | 2023-04-27 00:37 | NUR ---
PATIENT LYING IN BED, ALERT AND ORIENTED X4. PT DENIES CHEST PAIN AND SHORTNESS OF BREATH. PT AWARE AND CONFIRMED NPO STATUS AT MINDNIGHT. ICE APPLIED TO LEFT HIP, NO SIGNIFICANT BRUISING NOTED. VYAS IS DRAINING CLEAR YELLOW URINE. PT HAS NO FURTHER NEEDS, QUESTIONS, OR CONCERNS AT THIS TIME. CALL LIGHT WITHIN REACH, WILL CONTINUE TO MONITOR.
--- NOTE | 2023-04-27 05:32 | NUR ---
PATIENT HAD AN OVERALL UNEVENTFUL NIGHT. ICE REMAINING ON PT'S LEFT HIP. PATIENT DENIES PAIN AND HAS NO FURTHER NEEDS, QUESTIONS, OR CONCERNS AT THIS TIME. CALL LIGHT IS WITHIN REACH, CARE TO BE PASSED TO DAY SHIFT NURSE.
[2023-04-27 06:35] LABS: MEAN CELL VOLUME 94 fl (80.0-100.0); MEAN CORPUSCULAR HGB CONC 33 g/dl (33.0-37.0); MEAN PLATELET VOLUME 11.6 fl (7.4-10.4); PLATELET COUNT 115 K/mm3 (130-400); RED BLOOD COUNT 2.33 M/mm3 (4.20-5.60); REDCELL DISTRIBUTION WIDTH-CV 14.9 % (11.5-14.5)
[2023-04-27 06:55] LABS: CALCIUM 7.7 mg/dL (8.4-10.2); CREATININE, serum 1.22 mg/dL (0.72-1.25); HEMATOCRIT 21.8 % (42.0-52.0); HEMOGLOBIN 7.2 g/dl (13.5-18.0); MAGNESIUM 2.1 mg/dL (1.6-2.6); MEAN CORPUSCULAR HEMOGLOBIN 31 pg (27-31); POTASSIUM 3.6 mmol/L (3.5-4.5)
--- NOTE | 2023-04-27 08:30 | NUR ---
Patient is resting in bed, alert and oriented, denies pain while resting but with movement. Has been NPO. Telemetry in place, AFIB. Assessment completed. No further needs at this time. Call light within reach.
[2023-04-27 09:06] LABS: LYMPHOCYTE 10 % (20.0-51.0); NEUTROPHILS 89 % (42.0-75.2); NUCLEATED RED BLOOD CELL 1 (0-6); PLATELET ESTIMATE DECREASED (NORMAL)
[2023-04-27 09:07] LABS: MICROCYTOSIS 1+
--- NOTE | 2023-04-27 10:49 | NUR ---
Reported by OIL WELL SERVICES DISPATCHER that cath finn is almost out. After revision the head is easily taken out, baloon completely deflated. Hygiene provided since pt had an incontinent BM. 18fr cath finn placed. Yellow clear output.
--- NOTE | 2023-04-27 13:47 | NUR ---
Patient taken for surgery, getting blood transfusion. Pt stable after 15 mn starting transfusion. VSS.
--- NOTE | 2023-04-27 15:01 | NUR ---
Can Filling And Closing Machine Tender attempted to contact Patient on bed phone due to being on isolation for COVID. Can Filling And Closing Machine Tender attempted to contact ANASTACIO ALVARADO on file, social services technician was unable to leave a voicemail.
--- NOTE | 2023-04-27 17:26 | NUR ---
Patient is back to the medical unit, getting 2L O2 NC. 3 incisions covered with gauze and transparent dressing. CDI. Patient denies any pain at this time. Sleepy. HR 100-110. Continuemonitoring.
--- NOTE | 2023-04-27 19:21 | NUR ---
Report given to night RN.
[2023-04-28] VITALS (11 sets, daily range): BP systolic 100–138; BP diastolic 55–77; PULSE 87–98; TEMP 97.4–98.7
--- NOTE | 2023-04-28 05:05 | NUR ---
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 PT HAD A PRETTY UNEVENTFUL NIGHT. PT'S ONLY COMPLAINT WAS "OLD MAN PAINS," HOWEVER, PT DIDN'T WANT ANYTHING FOR PAIN. PT DENIED CHEST PAINS, PALPITATIONS, N,V,D, SOB OR DIZZINESS. FALL PRECAUTIONS IN PLACE. CALL LIGHT WITHIN REACH.
[2023-04-28 07:13] LABS: HEMOGLOBIN 7.9 g/dl (13.5-18.0)
[2023-04-28 07:14] LABS: HEMATOCRIT 24.4 % (42.0-52.0)
--- NOTE | 2023-04-28 09:00 | NUR ---
PT AWAKE IN BED UPON ENTERING. PT ALERT AND ORIENTED TO PERSON AND IS AWARE THAT HE IS IN [place] BUT UNSURE OF THE MONTH OR YEAR. FLUIDS RUNNING PER ORDER AND PT ON 2L NASAL CANNULA. PT DENIES SHORTNESS OF BREATH AT THIS TIME AND HAS A COUGH BUT DENIES ANY SPUTUM. VYAS DRAINING DEPENDENTLY WITH CLEAR YELLOW URINE, PT SCROTUM IS VERY SWOLLEN AND BRUISED. 3 POST OP SITES NOTED TO LEFT LEG COVERED WITH GAUZE AND TEGADERM, GAUZE NOTED TO HAVE DRY BLOOD AROUND EDGES WITH NO SIGNS OF CURRENT BLEEDING. PT REPORTS PAIN AND WHEN ASKED WHERE PT STATES "I DONT KNOW". PT SET UP WITH BREAKFAST AND DENIES NEEDS AT THIS TIME. BED IN LOWEST POSITION, CALL LIGHT IN REACH, BED ALARM ON
--- NOTE | 2023-04-28 12:03 | NUR ---
Patient Care Representative rounds: Patient on isolation precautions. Patient Care Representative offered prayer outside of Patient's room.
--- NOTE | 2023-04-28 14:49 | NUR ---
INDWELLING CATHETER REMOVED PER ORDER. 9MLS OF WATER REMOVED FROM BALLOON AND 350 MLS OF URINE EMPTIED FROM BAG. PT TOELRATED WELL AND NOEL CARE DONE. PT SCROTUM AND BASE OF PENIS IS BRUISED AND SWOLLEN. PT DENIES PAIN OR FURTHER NEEDS AT THIS TIME.
--- NOTE | 2023-04-28 17:35 | NUR ---
FLUIDS DISCONTINUED PER ORDER
--- NOTE | 2023-04-28 18:15 | NUR ---
PT IN BED UPON ENTERING. ON 2L NASAL CANNULA AND DENIES PAIN OR NEED AT THIS TIME. CARRILLO HOSE TO RIGHT LEG AND DRESSINGS INTACT. BED ALARM ON, CALL LIGHT IN REACH, BED IN LOWEST POSITION.
[2023-04-29 03:53] VITALS: BP 107/62; PULSE 94; TEMP 97.7
--- NOTE | 2023-04-29 04:05 | NUR ---
NURSING SHIFT ASSESSMENT COMPLETED. THE PATIENT WAS ALERT TO PERSON AND PLACE. THE PATIENT WAS INCONTINENT AND A COMPLETE BED CHANGE WAS NEEDED. PERICARE WAS PROVIDED. THE PATIENT WAS REPOSITIONED. THE PLAN OF CARE AND EVENING MEDICATIONS REVIEWED. FRESH WATER WAS PROVIDED. CALL LIGHT WITHIN REACH. BED IN LOW POSITION AND BED ALARM ON.
--- NOTE | 2023-04-29 05:20 | NUR ---
TELE CALLED AND STATED THAT THIS PATIENT HAD A 10 BEAT RUN OF V TACH. HELGA ARSHAD APRN NOTIFIED AT 05:08. NEW ORDERS RECEIVED FOR A MAG LEVEL AND AN EKG.
[2023-04-29 06:47] LABS: MEAN CELL VOLUME 95 fl (80.0-100.0); MEAN CORPUSCULAR HGB CONC 32 g/dl (33.0-37.0); MEAN PLATELET VOLUME 10.9 fl (7.4-10.4); PLATELET COUNT 199 K/mm3 (130-400); RED BLOOD COUNT 2.44 M/mm3 (4.20-5.60); REDCELL DISTRIBUTION WIDTH-CV 15.6 % (11.5-14.5)
[2023-04-29 06:50] LABS: HEMATOCRIT 23.2 % (42.0-52.0); HEMOGLOBIN 7.4 g/dl (13.5-18.0); MEAN CORPUSCULAR HEMOGLOBIN 30 pg (27-31)
[2023-04-29 06:59] LABS: CALCIUM 7.8 mg/dL (8.4-10.2); CREATININE, serum 1.27 mg/dL (0.72-1.25); POTASSIUM 3.8 mmol/L (3.5-4.5)
[2023-04-29 07:08] VITALS: BP 97/67; PULSE 91; TEMP 98.4
[2023-04-29 07:25] LABS: BAND 7 % (0-10); LYMPHOCYTE 7 % (20.0-51.0); METAMYELOCYTE 1 % (0-0); NEUTROPHILS 79 % (42.0-75.2); NUCLEATED RED BLOOD CELL 1 (0-6)
[2023-04-29 07:26] LABS: ANISOCYTOSIS 1+; PLATELET ESTIMATE NORMAL (NORMAL)
--- NOTE | 2023-04-29 10:07 | NUR ---
Patient alert to self and situation this morning. Shift assessment complete. Lung sounds diminished and clear, non-productive wet cough noted. Patient assisted with use of incentive spirometer and instructed to cough/deep breathe with cues. Dressing to left hip noted to have serosanguineous drainage to gauze underneath tegaderm, two dressings to left thigh CDI. This nurse assissted Coty Gallegos with dressing changes, new gauze and tegaderm placed. Patient does not tolerate repositioning/turning in bed well. Patient groans and yelps with slight movement, but seems comfortable when still. Scheduled Tylenol administered. Bilateral edema noted to legs and arms as well as hands and feet with +1 and +2 pitting edema. Bounding pulse noted to left radial site, stronger than right radial site. Scrotum is edematous and bruised due to fracture break. Patient continues to be incontinent, bed pad and cone changed with episodes Q1-2 hr. Patient currently working with PT at this time. Discussed shift assessment findings with Dr. Fitch during morning rounds.
[2023-04-29 11:51] VITALS: BP 93/60; PULSE 85; TEMP 98.1
[2023-04-29 13:28] LABS: HEMATOCRIT 21.6 % (42.0-52.0); HEMOGLOBIN 7.2 g/dl (13.5-18.0)
--- NOTE | 2023-04-29 14:16 | NUR ---
ARCHANA attempted to complete intake, but was unable to reach daughter Sylvia Ward at the number listed as [phone]. ARCHANA called patient's nurse to inquire about family member contact and nurse provided no family member has made contact. ARCHANA requested if family member calls to obtain a valid number. ARCHANA will continue to follow.
[2023-04-29 15:03] VITALS: BP 105/64; PULSE 94; TEMP 98.4
--- NOTE | 2023-04-29 18:26 | NUR ---
Patient continued to refuse sitting up on side of bed, ambulating, and resisted repositioning. x3 assist required to turn patient in order to provide incontinent care. Patient was incontinent of bladder and bowel. Patient yells with repositioning and kept stating, "stop this girls, I'm in pain" Scheduled Tylenol administered. Patient appears content when still. Patient refused meals this shift, only eating a few grapes and ice cream before repeating "I'm not hungry" over and over. Patient would do incentive spirometer with cues. Patient currently in bed with bed alarm on and call light within reach.
[2023-04-29 20:03] VITALS: BP 122/72; PULSE 90; TEMP 97.8
--- NOTE | 2023-04-29 20:53 | NUR ---
NURSING SHIFT ASSESSMENT COMPLETED. THE PATIENT WAS ALERT TO PERSON, BUT NOT TIME OR PLACE. THE PLAN OF CARE AND EVENING MEDICATIONS REVIEWED. THE PATIENT WAS PROVIDED FRESH WATER AND A DRINK. THE PATIENT DENIED NEEDING A SNACK. THE PATIENT HAS BEEN REFUSING MEALS. THE PATIENT DENIED PAIN WHILE BEING STILL, BUT PAIN WITH MOVEMENTS. THE PATIENT IS INCONTINENT OF URINE AND STOOL. CALL LIGHT WITHIN REACH. BED IN LOW POSITION. BED ALARM ON.
[2023-04-29 22:40] VITALS: BP 168/76; PULSE 89; TEMP 97.6
[2023-04-29 22:51] LABS: HEMATOCRIT 21.6 % (42.0-52.0); HEMOGLOBIN 7.1 g/dl (13.5-18.0)
[2023-04-30] VITALS (10 sets, daily range): BP systolic 95–174; BP diastolic 55–78; PULSE 69–105; TEMP 97.3–98.3
[2023-04-30 09:21] LABS: MEAN CELL VOLUME 95 fl (80.0-100.0); MEAN CORPUSCULAR HGB CONC 33 g/dl (33.0-37.0); MEAN PLATELET VOLUME 10.4 fl (7.4-10.4); PLATELET COUNT 179 K/mm3 (130-400); RED BLOOD COUNT 2.41 M/mm3 (4.20-5.60); REDCELL DISTRIBUTION WIDTH-CV 15.9 % (11.5-14.5)
[2023-04-30 09:23] LABS: HEMATOCRIT 22.8 % (42.0-52.0); HEMOGLOBIN 7.4 g/dl (13.5-18.0); MEAN CORPUSCULAR HEMOGLOBIN 31 pg (27-31)
[2023-04-30 09:39] LABS: CALCIUM 7.7 mg/dL (8.4-10.2); CREATININE, serum 1.09 mg/dL (0.72-1.25); MAGNESIUM 2.2 mg/dL (1.6-2.6); POTASSIUM 3.8 mmol/L (3.5-4.5)
[2023-04-30 10:19] LABS: ANISOCYTOSIS 1+; BAND 1 % (0-10); LYMPHOCYTE 3 % (20.0-51.0); METAMYELOCYTE 1 % (0-0); NEUTROPHILS 91 % (42.0-75.2); NUCLEATED RED BLOOD CELL 1 (0-6); PLATELET ESTIMATE NORMAL (NORMAL)
--- NOTE | 2023-04-30 16:32 | NUR ---
Cranberry Sorter contacted patient's daughter, Sylvia Ward (ph#[phone]) to discuss discharge planning. Patient lives in [place] with Sylvia Ward and sees Dr. Kwon for primary care. Patient obtains medications from [facility] in [place]. Patient uses a walker for ambulation and before hospitalization, was able to move around the home independently, but did need some assistance with bathing and dressing, which Sylvia Ward provided. ARCHANA discussed post acute rehab and Sylvia Ward is agreeable to this as she wants to make sure patient continues to get up and walker. Slyvia's first preference is [facility]. Sylvia Ward is also agreeable to have referrals sent to [facility], [facility] [place], and [facility]. ARCHANA faxed referrals to all four facilities. ARCHANA contacted [facility] and confirmed they received referral. ARCHANA left a message for SB and attempted to contact [facility]. [facility] requested Medicaid application as patient has no secondary per the Facesheet. Patient has DPOA-HC in EMR that designates Sylvia Ward. Discharge Plan: SNF
[2023-05-01] VITALS (12 sets, daily range): BP systolic 95–174; BP diastolic 54–80; PULSE 72–98; TEMP 97.9–98.8
--- NOTE | 2023-05-01 05:26 | NUR ---
04/30 2130 PT. STILL HAD HIS SUPPER TRAY WITH HIM WHEN I WENT TO GIVE HIM HIS NIGHT TIME MEDS, HE STATED THAT HE WAS STILL GOING TO TRY AND EAT SOME MORE, BUT APPEARED TO BE FALLING ASLEEP, I TOLD HIM I WOULD LEAVE IT WITH HIM FOR A LITTLE BIT LONGER, BUT WOULD GO AHEAD AND REMOVE IT THE NEXT TIME I CAME BACK TO CHECK ON HIM, GAVE PT. HIS MEDS CRUSHED IN APPLESAUCE BORIS CERNA STATED THAT HE HAD COUGHED A LITTLE BIT AFTER SOME OF HIS MORNING MEDS THAT SHE GAVE HIM, PT. DID NOT HAVE ANY DIFFICULTY SWALLOWING HIS MEDS IN A BITE OF APPLESAUCE, WILL CONTINUE TO MONITOR.
--- NOTE | 2023-05-01 13:16 | NUR ---
[facility] cannot accept at this time as they cannot consider patient until he is out of isolation. SW also spoke with [place], Financial Counselor who advised patient has Medicaid [employer] as a secondary.
--- NOTE | 2023-05-01 23:07 | NUR ---
PT. IS STILL CONFUSED AND GRUMPY, COMPLAINS THAT HE'S COLD WHEN YOU HAVE TO REMOVE HIS COVERS TO DO ANYTHING WITH HIM, I CHANGED THE INCONTINENCE PAD AROUND HIS PENIS, AND MADE SURE THAT HE WAS DRY, AND GAVE OT. HIS NIGHT TIME MEDS CRUSHED IN A BITE OF APPLESAUCE, WILL CONTINUE TO MONITOR.
[2023-05-02] VITALS (9 sets, daily range): BP systolic 89–104; BP diastolic 52–62; PULSE 80–93; TEMP 97.6–98.7
--- NOTE | 2023-05-02 11:33 | NUR ---
Patient alert to self this morning per baseline. Still not tolerating repositioning well, patient yells with turns. Scheduled Tylenol administered. Will administer PRN morphine in between next dose to alleviate discomfort. Frequent loose and mucus filled stools. Cough continues with no production. Dry drainage noted to airstrip on left hip. Patient currently laying in bed with bed alarm on.
--- NOTE | 2023-05-02 13:23 | NUR ---
PRN morphine adminsitered and noted to be effective. Patient is laying in bed content with bed alarm on. Staff continues to reposition Q2hr and provide incontinence care. Cone applied around penis due to incontinence and reinforced with bed pad to provide support for scrotum. All needs met at this time.
--- NOTE | 2023-05-02 15:59 | NUR ---
Dressings to left hip and thigh changed. Previous dressings noted to be gauze and tegaderm as well as an airstrip. Airstrip saturated with serous yellow drainage, gauze has scant serosanguinous drainage noted. New gauze and tegaderm applied to sites. Incisions are intact and without redness, oozing, or odor. Dr. Thomas updated, wound culture order obtained.
--- NOTE | 2023-05-02 16:30 | NUR ---
Box Estimator spoke with Yoon at [facility] who advised she can accept patient tomorrow. SW updated patient's daughter, Sylvia Ward who is in agreement with this plan. Yoon advised transport could arrive at 1300 tomorrow for berry picker machine operator.
--- NOTE | 2023-05-02 18:11 | NUR ---
Dressing changed a second time due to saturation of gauze with serous drainage. Incision intact, no redness or warmth noted. Patient assisted with sips of water and gatorade. Currently resting in bed with bed alarm on. All needs met at this time.
--- NOTE | 2023-05-02 18:32 | NUR ---
Patient's daughter came to visit. Full PPE donned when present in patient's room. Daughter approached nurses desk after visiting to express concern over patient's condition. Daughter stated patient is not normally as confused and "out of it" as he is right now. Education provided on patients with dementia and change in environment, hip fracture recovery, and patient's day to day progress. Daughter informed patient has been refusing therapies and cares. This nurse offered to bring concerns up to doctor, patient's daughter declined stating, "Well he is leaving tomorrow so I will ask the rehab facility about it." and left unit.
--- NOTE | 2023-05-02 23:46 | NUR ---
PT. SLEEPING WHEN I WENT TO CHECK ON HIM, EXPLAINED THAT I HAD SOME MEDICATION TO GIVE HIM, CRUSHED HIS PILLS IN ABITE OF APPLESAUCE, PT. WAS WET AND DIRTY WHEN I CHECKED, JAYNE, THE NURSE'S AIDE HELPED ME GET THE PT. TURNED AND CLEANED, AND WE GOT HIS BOTTOM SHEET CHANGED, PT. YELLS AND ACTIVELY PUSHES AGAINST YOU WHEN YOU ARE TRYING TO TURN HIM, WILL CONTINUE TO MONITOR.
[2023-05-03] VITALS (7 sets, daily range): BP systolic 92–99; BP diastolic 55–58; PULSE 86–99; TEMP 98.1–98.5
[2023-05-03 06:35] LABS: MEAN CELL VOLUME 98 fl (80.0-100.0); MEAN CORPUSCULAR HGB CONC 31 g/dl (33.0-37.0); MEAN PLATELET VOLUME 10.9 fl (7.4-10.4); PLATELET COUNT 181 K/mm3 (130-400); RED BLOOD COUNT 2.44 M/mm3 (4.20-5.60); REDCELL DISTRIBUTION WIDTH-CV 17.1 % (11.5-14.5)
[2023-05-03 06:39] LABS: HEMATOCRIT 23.9 % (42.0-52.0); HEMOGLOBIN 7.4 g/dl (13.5-18.0); MEAN CORPUSCULAR HEMOGLOBIN 30 pg (27-31)
[2023-05-03 06:53] LABS: CALCIUM 8.1 mg/dL (8.4-10.2); CREATININE, serum 0.93 mg/dL (0.72-1.25); POTASSIUM 3.6 mmol/L (3.5-4.5)
[2023-05-03 07:03] LABS: ANISOCYTOSIS 1+; HYPOCHROMIA 1+; LYMPHOCYTE 6 % (20.0-51.0); NEUTROPHILS 91 % (42.0-75.2); PLATELET ESTIMATE NORMAL (NORMAL)
[2023-05-03 07:04] LABS: OVALOCYTES 1+; SCHISTOCYTES 1+
[2023-05-03] MEDS ORDERED: RT Albuterol HFA MDI IH (09:03)
--- NOTE | 2023-05-03 09:30 | NUR ---
PT AWAKE IN BED UPON ENTERING, BREAKFAST SET UP OVER BED. PT ORIENTED TO SELF ONLY AND UNABLE TO ACCURATELY TELL THIS NURSE WHERE THEY ARE OR THE YEAR, PT REORIENTED. 3 SURGICAL SITES TO LEFT LEG. 2 SITES COVERED WITH AIRSTRIP DRESSING WITH NOTED SEROUS DRAINAGE, DRESSING CHANGED. PT IS VERY WEAK DURING ASSESSMENT AND REFUSING TO ATTEMPT TO ROLL OR SHIFT BODY. CARRILLO HOSE ON BILATERAL LOWER EXTREMITIES, PULSES PRESENT. PT HAS A WET COUGH BUT NOT COUGHING ANYTHING UP WHILE THIS NURSE IS IN THE ROOM. MEDS CRUSHED AND GIVEN WITH APPLESAUCE. BREAKFAST SET UP NEAR BED AND OFFERED BY THIS NURSE BUT PT REFUSED. PT DENIES PAIN AT THIS TIME, BED IN LOWEST POSITION, CALL LIGHT IN REACH.
--- NOTE | 2023-05-03 13:30 | NUR ---
IV AND TELEMETRY DISCONTINUED. PT TRANSFERRED TO WHEELCHAIR VIA [facility] WITH 3 ASSIST. PT UNABLE TO ASSIST MUCH DURING TRANSFER. PT REPORTED SOME PAIN DURING TRANSFER BUT CALMED AFTER. [facility] TRANSPORT OUTSIDE ROOM AND ASSISTED WITH TRANSPORT TO [facility]. PT BELONGINGS [facility] PT. PT DENIES NEEDS AT THIS TIME
--- NOTE | 2023-05-03 14:44 | NUR ---
REPORT CALLED TO NURSE DORAN AT [facility]
--- NOTE | 2023-05-03 14:47 | NUR ---
Employee Relations Administrator contacted Yoon with [facility] and confirmed they can still accept patient today with a pickle cutter time of 1300. SW faxed discharge orders. SW contacted patient's daughter, Sylvia Ward and reviewed IM form. Sylvia Ward did take this opportunity to express that she did not feel she had good communication with the hospital in regards to patient's plan of care. Sylvia Ward stated she visited patient last night and he was "out of it" and she felt like she did not get a good explanation as to why. Sylvia Ward was clear this was not patient's baseline. Sylvia Ward declined when SW offered to have Hospitalist call her as she stated she just plans to work with [facility] from this point forward. Sylvia Ward is aware of transport time and is in agreement with discharge plan. Discharge Plan: [facility]
== END 2023-05-03 13:30 | DRG 480 ==
LOC: MEDICAL 16:37
PROVIDERS: Hospitalist; Internal Medicine; Orthopaedic Surgery; Physician Assistant; ADMIT Internal Medicine
PROC: 0QS706Z Reposition Left Upper Femur with Intramedullary Internal Fixation Device, Open Approach (ICD-10-PCS; principal; 2023-04-26)
DX: S72.22XA Displaced subtrochanteric fracture of left femur, initial encounter for closed fracture (principal); J96.01 Acute respiratory failure with hypoxia; U07.1 COVID-19; I13.0 Hypertensive heart and chronic kidney disease with heart failure and stage 1 through stage 4 chronic kidney disease, or unspecified chronic kidney disease; N17.9 Acute kidney failure, unspecified; I50.32 Chronic diastolic (congestive) heart failure; I47.1 Supraventricular tachycardia; N18.9 Chronic kidney disease, unspecified; E86.0 Dehydration; D64.9 Anemia, unspecified; I48.91 Unspecified atrial fibrillation; Z79.01 Long term (current) use of anticoagulants; K21.9 Gastro-esophageal reflux disease without esophagitis; G30.9 Alzheimer's disease, unspecified; F02.80 Dementia in other diseases classified elsewhere, unspecified severity, without behavioral disturbance, psychotic disturbance, mood disturbance, and anxiety; N40.0 Benign prostatic hyperplasia without lower urinary tract symptoms
CPT/HCPCS: A9284; C1713; C1769; J0690; J1100; J2270; J2405; J2704; J2710; J2795; J3010; J7030; J8540; P9016